=== PATIENT | female | born 1975 | race Hispanic/Latino ===

== ENCOUNTER 2018-01-08 08:10 | Emergency (ER) | payer MEDICAID, OTHER ==
[2018-01-08 09:01] LABS: BILIRUBIN,URINE Negative (NEGATIVE); COLOR,URINE Yellow (YELLOW); GLUCOSE, URINE (UA) Negative (NEGATIVE); KETONES,URINE Negative (NEGATIVE); LEUKOCYTE ESTERASE ,URINE Trace (NEGATIVE); NITRATE,URINE Negative (NEGATIVE); OCCULT BLOOD,URINE Small (NEGATIVE); PROTEIN,URINE Negative (NEGATIVE); UROBILINOGEN,URINE 0.2 mg/dL (0.2-1.0)
[2018-01-08 09:06] LABS: APPEARANCE,URINE SLIGHTLY CLOUDY (CLEAR)
[2018-01-08 09:42] LABS: BACTERIA,URINE Few /HPF (None Seen); RBC,URINE 0-1 /HPF (0-1); WBC,URINE 0-1 /HPF (0-1)
== END 2018-01-08 09:45 | disposition home or self-care (01) ==
LOC: EDH 08:10
DX: M54.5 Low back pain (principal); Z88.0 Allergy status to penicillin
CPT/HCPCS: 81001; 81025

== ENCOUNTER 2018-08-31 19:08 | Emergency (ER) | payer OTHER | END 2018-08-31 19:44 | disposition home or self-care (01) | LOC: EDH 19:08 | DX: O26.891 Other specified pregnancy related conditions, first trimester (principal); Z88.0 Allergy status to penicillin; Z79.899 Other long term (current) drug therapy; Z3A.01 Less than 8 weeks gestation of pregnancy | CPT/HCPCS: 99281 ==

== ENCOUNTER 2019-01-30 18:55 | Observation (INO) | payer MEDICAID, OTHER ==
[~2019-01-30] VITALS: Ht 152.4 cm; Wt 80.7 kg
[2019-01-30] MEDS ORDERED: LACTATED RINGERS 1000ML 1,000 ML IV PRN (19:16)
[2019-01-30 19:46] LABS: APPEARANCE,URINE CLEAR (CLEAR); BILIRUBIN,URINE NEGATIVE (NEGATIVE); COLOR,URINE YELLOW (YELLOW); GLUCOSE, URINE (UA) NEGATIVE (NEGATIVE); KETONES,URINE NEGATIVE (NEGATIVE); LEUKOCYTE ESTERASE ,URINE NEGATIVE (NEGATIVE); NITRATE,URINE NEGATIVE (NEGATIVE); OCCULT BLOOD,URINE SMALL (NEGATIVE); PROTEIN,URINE TRACE mg/dL (NEGATIVE)
[2019-01-30 19:55] LABS: AMPHET/METH SCREEN,URINE NEGATIVE (NEGATIVE); BARBITURATE SCREEN, URINE NEGATIVE (NEGATIVE); BENZODIAZEPINES SCREEN,URINE NEGATIVE (NEGATIVE); CANNABINOID SCREEN,URINE NEGATIVE (NEGATIVE); COCAINE SCREEN,URINE NEGATIVE (NEGATIVE); OPIATE SCREEN,URINE NEGATIVE (NEGATIVE); PHENCYCLIDINE SCREEN,URINE NEGATIVE (NEGATIVE)
[2019-01-30 20:10] LABS: BACTERIA,URINE Few /HPF (None Seen); MUCUS,URINE Few LPF (None Seen); SQUAMOUS EPITHELIAL CELL,UR Moderate /HPF (0-2)
== END 2019-01-30 21:55 | disposition home or self-care (01) ==
LOC: EDH 18:55 → LDH 19:31
PROVIDERS: ADMIT Obstetrics & Gynecology; ATTEND Obstetrics & Gynecology
DX: O42.912 Preterm premature rupture of membranes, unspecified as to length of time between rupture and onset of labor, second trimester (principal); Z3A.27 27 weeks gestation of pregnancy; Z79.899 Other long term (current) drug therapy
CPT/HCPCS: 76805; 80305; 81001; 99284; G0378 ×2; 96360

== ENCOUNTER 2019-02-09 18:06 | Observation (INO) | payer MEDICAID ==
[2019-02-09 18:54] LABS: APPEARANCE,URINE Clear (CLEAR); BILIRUBIN,URINE Negative (NEGATIVE); COLOR,URINE Dark Yellow (YELLOW); GLUCOSE, URINE (UA) Negative (NEGATIVE); KETONES,URINE Negative (NEGATIVE); LEUKOCYTE ESTERASE ,URINE Trace (NEGATIVE); NITRATE,URINE Negative (NEGATIVE); OCCULT BLOOD,URINE Negative (NEGATIVE); PH,URINE 6.5 (5.0-8.0); PROTEIN,URINE Trace mg/dL (NEGATIVE)
[2019-02-09 19:21] LABS: RBC,URINE 0-1 /HPF (0-1)
[2019-02-09 19:22] LABS: BACTERIA,URINE Few /HPF (None Seen); MUCUS,URINE Rare LPF (None Seen); SQUAMOUS EPITHELIAL CELL,UR Moderate /HPF (0-2)
[2019-02-09 19:54] LABS: AMPHET/METH SCREEN,URINE NEGATIVE (NEGATIVE); BARBITURATE SCREEN, URINE NEGATIVE (NEGATIVE); BENZODIAZEPINES SCREEN,URINE NEGATIVE (NEGATIVE); CANNABINOID SCREEN,URINE NEGATIVE (NEGATIVE); COCAINE SCREEN,URINE NEGATIVE (NEGATIVE); OPIATE SCREEN,URINE NEGATIVE (NEGATIVE); PHENCYCLIDINE SCREEN,URINE NEGATIVE (NEGATIVE)
== END 2019-02-09 20:05 | disposition home or self-care (01) ==
LOC: EDH 18:06 → LDH 18:23
PROVIDERS: ADMIT Obstetrics & Gynecology; ATTEND Obstetrics & Gynecology
DX: O26.893 Other specified pregnancy related conditions, third trimester (principal); R10.2 Pelvic and perineal pain; O09.523 Supervision of elderly multigravida, third trimester; Z3A.29 29 weeks gestation of pregnancy; Z79.899 Other long term (current) drug therapy
CPT/HCPCS: 80305; 81001; 99284; G0378 ×2

== ENCOUNTER 2019-02-11 17:02 | Observation (INO) | payer MEDICAID ==
[~2019-02-11] VITALS: Ht 149.9 cm; Wt 81.2 kg
[2019-02-11 17:22] LABS: APPEARANCE,URINE CLOUDY (CLEAR); BILIRUBIN,URINE NEGATIVE (NEGATIVE); COLOR,URINE YELLOW (YELLOW); GLUCOSE, URINE (UA) NEGATIVE (NEGATIVE); KETONES,URINE NEGATIVE (NEGATIVE); LEUKOCYTE ESTERASE ,URINE SMALL (NEGATIVE); NITRATE,URINE NEGATIVE (NEGATIVE); OCCULT BLOOD,URINE NEGATIVE (NEGATIVE); PROTEIN,URINE TRACE mg/dL (NEGATIVE)
[2019-02-11 17:29] LABS: AMORPHOUS SEDIMENT,UR Few /LPF (None Seen); BACTERIA,URINE Few /HPF (None Seen); RBC,URINE 0-1 /HPF (0-1); SQUAMOUS EPITHELIAL CELL,UR Moderate /HPF (0-2)
[2019-02-11 17:30] LABS: MUCUS,URINE Few LPF (None Seen)
[2019-02-11 18:19] VITALS: BP 125/77
[2019-02-11] MEDS ORDERED: LACTATED RINGERS 1000ML 1,000 ML IV ONE (18:30)
[2019-02-11] MEDS ORDERED: LACTATED RINGERS 1000ML 1,000 ML IV SCH (18:45)
== END 2019-02-11 19:45 | disposition home or self-care (01) ==
LOC: EDH 17:02 → LDH 17:47
PROVIDERS: ADMIT Obstetrics & Gynecology; ATTEND Obstetrics & Gynecology
DX: O26.893 Other specified pregnancy related conditions, third trimester (principal); N89.8 Other specified noninflammatory disorders of vagina; Z3A.29 29 weeks gestation of pregnancy
CPT/HCPCS: 81001; 99284; G0378 ×2; J7120; 96360

== ENCOUNTER 2019-02-20 02:42 | Observation (INO) | payer MEDICAID ==
[~2019-02-20] VITALS: Ht 149.9 cm; Wt 81.6 kg
[2019-02-20] MEDS ORDERED: LACTATED RINGERS 1000ML 1,000 ML IV SCH (02:55)
[2019-02-20 03:08] LABS: APPEARANCE,URINE Cloudy (CLEAR); BILIRUBIN,URINE Negative (NEGATIVE); COLOR,URINE Yellow (YELLOW); GLUCOSE, URINE (UA) Negative (NEGATIVE); KETONES,URINE Negative (NEGATIVE); LEUKOCYTE ESTERASE ,URINE Trace (NEGATIVE); NITRATE,URINE Negative (NEGATIVE); OCCULT BLOOD,URINE Negative (NEGATIVE); PROTEIN,URINE Trace mg/dL (NEGATIVE)
[2019-02-20 03:16] LABS: AMPHET/METH SCREEN,URINE NEGATIVE (NEGATIVE); BARBITURATE SCREEN, URINE NEGATIVE (NEGATIVE); BENZODIAZEPINES SCREEN,URINE NEGATIVE (NEGATIVE); CANNABINOID SCREEN,URINE NEGATIVE (NEGATIVE); COCAINE SCREEN,URINE NEGATIVE (NEGATIVE); OPIATE SCREEN,URINE NEGATIVE (NEGATIVE); PHENCYCLIDINE SCREEN,URINE NEGATIVE (NEGATIVE)
[2019-02-20 03:22] LABS: BACTERIA,URINE None Seen /HPF (None Seen); MUCUS,URINE Moderate LPF (None Seen); RBC,URINE 0-1 /HPF (0-1); SQUAMOUS EPITHELIAL CELL,UR Few /HPF (0-2); WBC,URINE 0-1 /HPF (0-1)
== END 2019-02-20 05:00 | disposition home or self-care (01) ==
LOC: EDH 02:42 → LDH 02:43
PROVIDERS: ADMIT Obstetrics & Gynecology; ATTEND Obstetrics & Gynecology
DX: O62.9 Abnormality of forces of labor, unspecified (principal); Z3A.31 31 weeks gestation of pregnancy; Z88.0 Allergy status to penicillin
CPT/HCPCS: 59025; 76815; 80305; 81001; 99284; G0378 ×2; J7120; 96360

== ENCOUNTER 2019-11-10 06:36 | Emergency (ER) | payer MEDICAID, OTHER ==
[2019-11-10 07:16] LABS: APPEARANCE,URINE CLEAR (CLEAR); BILIRUBIN,URINE NEGATIVE (NEGATIVE); COLOR,URINE YELLOW (YELLOW); GLUCOSE, URINE (UA) NEGATIVE (NEGATIVE); KETONES,URINE NEGATIVE (NEGATIVE); LEUKOCYTE ESTERASE ,URINE NEGATIVE (NEGATIVE); NITRATE,URINE NEGATIVE (NEGATIVE); OCCULT BLOOD,URINE MODERATE (NEGATIVE); PH,URINE 5.5 (5.0-8.0); PROTEIN,URINE NEGATIVE (NEGATIVE); UROBILINOGEN,URINE 0.2 mg/dL (0.2-1.0)
[2019-11-10 07:18] LABS: HCG,QUAL RESULT NEGATIVE (NEGATIVE)
[2019-11-10 07:29] LABS: SQUAMOUS EPITHELIAL CELL,UR Few /HPF (0-2)
[2019-11-10 07:30] LABS: BACTERIA,URINE Rare /HPF (None Seen); WBC,URINE None Seen /HPF (0-1)
[2019-11-10 07:32] LABS: BASOPHILS % (AUTO) 0.2 % (0.0-5.0); EOSINOPHILS % (AUTO) 8.1 % (0.0-8.0); HEMATOCRIT 42.3 % (36-48); LYMPHOCYTES % (AUTO) 22.2 % (21.0-51.0); MEAN CORPUSCULAR HEMOGLOBIN 29.4 pg (27.0-33.0); MEAN CORPUSCULAR HGB CONC 33.3 g/dL (32.0-36.0); MEAN CORPUSCULAR VOLUME 88.3 fL (79-99); MONOCYTES % (AUTO) 7.2 % (3.0-13.0); NEUTROPHILS % (AUTO) 62.1 % (40.0-77.0); PLATELET COUNT (AUTO) 292 K/uL (130-400); RED BLOOD CELL COUNT(AUTO) 4.79 MIL/uL (4.00-5.50); RED CELL DISTRIBUTION WIDTH 12.1 % (11.0-15.5); WHITE BLOOD COUNT (AUTO) 8.9 K/uL (4.8-10.8)
[2019-11-10 07:42] LABS: CREATININE 0.8 mg/dL (0.5-1.5); POTASSIUM 4.3 mmol/L (3.5-5.1)
[2019-11-10] MEDS ORDERED: ACETAMINOPHEN EXTRA STRENGTH 500 MG TABLET ONE (08:26)
== END 2019-11-10 08:31 | disposition home or self-care (01) ==
LOC: EDH 06:36
DX: B37.3 Candidiasis of vulva and vagina (principal); Z88.0 Allergy status to penicillin; Z98.51 Tubal ligation status
CPT/HCPCS: 36415; 80048; 81001; 81025; 85025

== ENCOUNTER 2020-11-27 00:29 | Emergency (ER) | payer SELFPAY ==
[2020-11-27 00:58] LABS: BASOPHILS % (AUTO) 0.5 % (0.0-5.0); EOSINOPHILS % (AUTO) 4.1 % (0.0-8.0); HEMATOCRIT 39.8 % (36-48); LYMPHOCYTES % (AUTO) 28.8 % (21.0-51.0); MEAN CORPUSCULAR HEMOGLOBIN 30.7 pg (27.0-33.0); MEAN CORPUSCULAR HGB CONC 34.9 g/dL (32.0-36.0); MEAN CORPUSCULAR VOLUME 87.9 fL (79-99); NEUTROPHILS % (AUTO) 58.4 % (40.0-77.0); PLATELET COUNT (AUTO) 269 K/uL (130-400); RED BLOOD CELL COUNT(AUTO) 4.53 MIL/uL (4.00-5.50); RED CELL DISTRIBUTION WIDTH 12.3 % (11.0-15.5); WHITE BLOOD COUNT (AUTO) 8.6 K/uL (4.8-10.8)
[2020-11-27 01:06] LABS: CREATININE 0.9 mg/dL (0.5-1.5); POTASSIUM 3.6 mmol/L (3.5-5.1)
[2020-11-27 01:11] LABS: ALBUMIN 3.6 g/dL (3.5-5.0); BILIRUBIN,TOTAL 0.2 mg/dL (0.2-1.0); TOTAL PROTEIN, SERUM 7.4 g/dL (6.0-8.3)
[2020-11-27] MEDS ORDERED: PREDNISONE 20 MG TABLET ONE (01:37)
== END 2020-11-27 03:44 | disposition home or self-care (01) ==
LOC: EDH 00:29
DX: R07.89 Other chest pain (principal); Z90.49 Acquired absence of other specified parts of digestive tract; Z88.0 Allergy status to penicillin
CPT/HCPCS: 36415; 71045; 80053; 84484; 85025; 93005

== ENCOUNTER 2020-11-27 23:46 | Emergency (ER) | payer SELFPAY ==
[2020-11-28] MEDS ORDERED: IOHEXOL-350 50ML VIAL IV ONE (00:45)
[2020-11-28] MEDS ORDERED: KETOROLAC TROMETHAMINE 60 MG/2 ML VIAL ONE (01:01)
== END 2020-11-28 02:49 | disposition home or self-care (01) ==
LOC: EDH 23:46
DX: S29.011A Strain of muscle and tendon of front wall of thorax, initial encounter (principal); Z90.49 Acquired absence of other specified parts of digestive tract; X58.XXXA Exposure to other specified factors, initial encounter; Y93.89 Activity, other specified; Y92.89 Other specified places as the place of occurrence of the external cause; Y99.8 Other external cause status
CPT/HCPCS: 71260; 96372; 99285; J1885; Q9967

== ENCOUNTER 2023-02-09 13:53 | Emergency (ER) | payer OTHER ==
[~2023-02-09] VITALS: Ht 152.4 cm; Wt 74.8 kg
[2023-02-09] MEDS ORDERED: IBUP-2070 PO (16:34)
[2023-02-09 16:37] VITALS: BP 139/72
[2023-02-09] MEDS ORDERED: KETOROLAC 30MG VIAL (30MG/ML) IM ONE (17:00)
== END 2023-02-09 17:10 | disposition home or self-care (01) ==
LOC: EDH 13:53
DX: S63.681A Other sprain of right thumb, initial encounter (principal); Z90.89 Acquired absence of other organs; Z88.8 Allergy status to other drugs, medicaments and biological substances; X58.XXXA Exposure to other specified factors, initial encounter; Y93.89 Activity, other specified; Y92.89 Other specified places as the place of occurrence of the external cause; Y99.8 Other external cause status
CPT/HCPCS: 99283; 73140; 29125; 96372; J1885

== ENCOUNTER 2023-08-09 19:50 | Emergency (ER) | payer OTHER ==
[~2023-08-09] VITALS: Ht 160 cm; Wt 72.6 kg
[~2023-08-09 19:50] MED LIST: IBUP-2070 PO
[2023-08-09 20:53] LABS: BASOPHILS # (AUTO) 0.04 K/uL (0.00-0.20); BASOPHILS % (AUTO) 0.4 % (0.0-5.0); EOSINOPHILS # (AUTO) 0.42 K/uL (0.00-0.70); EOSINOPHILS % (AUTO) 4.2 % (0.0-8.0); HEMATOCRIT 38.4 % (36-48); IMMATURE GRANULOCYTE ABSOLUTE 0.03 K/uL (0-1); LYMPHOCYTES # (AUTO) 2.6 K/uL (1.0-4.8); LYMPHOCYTES % (AUTO) 26.3 % (21.0-51.0); MEAN CORPUSCULAR HEMOGLOBIN 30.4 pg (27.0-33.0); MEAN CORPUSCULAR HGB CONC 34.4 g/dL (32.0-36.0); MEAN CORPUSCULAR VOLUME 88.5 fL (79-99); MONOCYTES # (AUTO) 0.7 K/uL (0.1-1.0); MONOCYTES % (AUTO) 7.3 % (3.0-13.0); NEUTROPHILS # (AUTO) 6.2 K/uL (1.8-7.7); NEUTROPHILS % (AUTO) 61.5 % (40.0-77.0); PLATELET COUNT (AUTO) 303 K/uL (130-400); RED BLOOD CELL COUNT(AUTO) 4.34 MIL/uL (4.00-5.50); RED CELL DISTRIBUTION WIDTH 12.5 % (11.0-15.5)
[2023-08-09] MEDS ORDERED: LACTATED RINGERS 1000ML 1,000 ML IV ONE (21:00)
[2023-08-09] MEDS ORDERED: ONDANSETRON 4MG INJ IVP ONE (21:00)
[2023-08-09] MEDS ORDERED: NITROGLYCERIN 0.4 MG SL TAB SL PRN (21:00)
[2023-08-09 21:03] LABS: CREATININE 0.7 mg/dL (0.5-1.5); POTASSIUM 4.9 mmol/L (3.5-5.1)
[2023-08-09 21:14] LABS: ALBUMIN 3.2 g/dL (3.5-5.0); BILIRUBIN,TOTAL 0.4 mg/dL (0.2-1.0); TOTAL PROTEIN, SERUM 7.8 g/dL (6.0-8.3)
[2023-08-09] MEDS ORDERED: ASPIRIN 325MG TAB PO ONE (23:30)
[2023-08-09 23:44] VITALS: BP 116/80; PULSE 83; RESP 16; O2SAT 99
== END 2023-08-10 00:27 | disposition home or self-care (01) ==
LOC: EDH 19:50
DX: R07.89 Other chest pain (principal); R11.2 Nausea with vomiting, unspecified; Z90.89 Acquired absence of other organs; Z88.0 Allergy status to penicillin
CPT/HCPCS: 99285; 96374; 71045; 96361; 84484 ×2; 80053; 84703; 83690; 85025; 36415; 93005 ×3; J7120; J2405

== ENCOUNTER 2025-01-08 17:03 | Emergency (ER) | payer SELFPAY ==
[~2025-01-08] VITALS: Ht 160 cm; Wt 73.9 kg
[2025-01-08 17:40] LABS: BASOPHILS # (AUTO) 0.07 K/uL (0.00-0.20); BASOPHILS % (AUTO) 0.7 % (0.0-5.0); EOSINOPHILS # (AUTO) 0.76 K/uL (0.00-0.70); EOSINOPHILS % (AUTO) 7.5 % (0.0-8.0); IMMATURE GRANULOCYTE ABSOLUTE 0.03 K/uL (0-1); LYMPHOCYTES # (AUTO) 2.7 K/uL (1.0-4.8); MEAN CORPUSCULAR HEMOGLOBIN 30.1 pg (27.0-33.0); MEAN CORPUSCULAR HGB CONC 33.6 g/dL (32.0-36.0); MEAN CORPUSCULAR VOLUME 89.7 fL (79-99); MONOCYTES # (AUTO) 0.9 K/uL (0.1-1.0); MONOCYTES % (AUTO) 8.5 % (3.0-13.0); NEUTROPHILS # (AUTO) 5.7 K/uL (1.8-7.7); PLATELET COUNT (AUTO) 339 K/uL (130-400); RED BLOOD CELL COUNT(AUTO) 4.68 MIL/uL (4.00-5.50); RED CELL DISTRIBUTION WIDTH 12.7 % (11.0-15.5); WHITE BLOOD COUNT (AUTO) 10.1 K/uL (4.8-10.8)
[2025-01-08 17:50] LABS: CREATININE 0.9 mg/dL (0.5-1.0)
--- NOTE | 2025-01-08 18:08 | HMCIMG ---
ULTRASOUND SOFT TISSUE INDICATION: Lateral right neck lump COMPARISON: None TECHNIQUE: Multiplanar sonographic images of the lateral right neck were obtained earlier in real-time using grayscale and color Doppler technique, and subsequently made available for review. FINDINGS/IMPRESSION: 9 x 7 x 9 mm abnormal reactive lymph node demonstrated along the lateral right neck with associated vascularity and loss of normal reniform shape and fatty hilum.
[2025-01-08 18:30] VITALS: BP 137/86; PULSE 83; RESP 16; TEMP 97.8; O2SAT 97
[2025-01-08] MEDS ORDERED: CLIN-141 PO (18:55)
--- NOTE | 2025-01-08 18:55 | ERN ---
General Chief Complaint: Neck Pain Stated Complaint: LUMP ON NECK Time Seen by MD: 17:05 Time Seen by Midlevel: 17:05 Source: patient History of Present Illness Initial Comments 49-year-old female presents to the emergency department due to right-sided neck pain onset last night. Patient reports she noticed a lump to the right side. Denies any cough, congestion, headache, decreased neck motion or further associated symptoms. Denies significant past medical history. Allergies: Coded Allergies: Penicillins (Unverified Allergy, Mild, RASH, 02/10/17) Home Meds Active Scripts Clindamycin HCl (Clindamycin HCl) 300 Mg Capsule, 1 CAP PO TID for 7 Days, #21 CAP 0 Refills Prov:SACHIN VENEGAS 01/08/25 Ibuprofen (Ibuprofen) 600 Mg Tablet, 600 MG PO Q6H PRN for PAIN, #30 TAB Prov:PETER GRANDE 02/09/23 Past Medical History Past Medical History: No Pertinent History Past Surgical History: Tonsillectomy ROS Dictation Constitutional: Negative for fever,chills, and weight loss Eyes: Negative for injury, pain,redness, and discharge ENT: Negative for injury,pain or swelling Cardiovascular: Negative for chest pain, palpitations, and edema Respiratory: Negative for shortness of breath, cough, and wheezing, Abdomen/GI: Negative for abdominal pain, nausea, vomiting, diarrhea, and constipation Back: Negative for injury and pain : Negative for painful urination, bleeding or discharge MS/Extremity: Positive for right-sided neck pain and bump. Negative for injury and deformity Skin: Negative for rash, and discoloration Neuro: Negative for headache, weakness, numbness, tingling, and seizure Psych: Negative for suicide ideation, homicidal ideation, and hallucinations Physical Exam Physical Exam Dictation General: awake, alert, no acute distress Head/Face: Normocephalic, atraumatic Eyes: PERRL, EOMI, normal conjunctiva ENT: oral cavity clear, oral mucosa moist, mild erythematous tonsils bilaterally Neck: Supple, normal range of motion, right-sided posterior lymph node swelling mild tenderness mobile, anterior cervical lymph node tenderness Cardiovascular: RRR, normal S1/S2 Respiratory: CTAB, no respiratory distress, no rales or wheezes Skin: Warm, dry, normal turgor, no rash MS/Extremity: Pulses equal, no cyanosis, neurovascular intact, FROM Neuro: COAx4, GCS 15, strength 5/5, CN 2-12 intact, normal cerebellar exam, normal gait Psych: Normal behavior, mood, and affect normal Results Laboratory and Microbiology Lab and Micro Result Laboratory Tests Test 01/08/25 17:32 01/08/25 17:58 White Blood Count 10.1 K/uL (4.8-10.8) Red Blood Count 4.68 MIL/uL (4.00-5.50) Hemoglobin 14.1 g/dL (12.0-16.0) Hematocrit 42.0 % (36-48) Mean Corpuscular Volume 89.7 fL (79-99) Mean Corpuscular Hemoglobin 30.1 pg (27.0-33.0) Mean Corpuscular Hemoglobin Concent 33.6 g/dL (32.0-36.0) Red Cell Distribution Width 12.7 % (11.0-15.5) Platelet Count 339 K/uL (130-400) Mean Platelet Volume 9.6 fL (7.5-10.5) Immature Granulocyte % (Auto) 0.3 % (0-1) Neutrophils (%) (Auto) 56.0 % (40.0-77.0) Lymphocytes (%) (Auto) 27.0 % (21.0-51.0) Monocytes (%) (Auto) 8.5 % (3.0-13.0) Eosinophils (%) (Auto) 7.5 % (0.0-8.0) Basophils (%) (Auto) 0.7 % (0.0-5.0) Neutrophils # (Auto) 5.7 K/uL (1.8-7.7) Lymphocytes # (Auto) 2.7 K/uL (1.0-4.8) Monocytes # (Auto) 0.9 K/uL (0.1-1.0) Eosinophils # (Auto) 0.76 K/uL (0.00-0.70) H Basophils # (Auto) 0.07 K/uL (0.00-0.20) Absolute Immature Granulocyte (auto 0.03 K/uL (0-1) Nucleated Red Blood Cells 0.0 % (0.0-0.19) Sodium Level 139 mmol/L (136-145) Potassium Level 4.0 mmol/L (3.5-5.1) Chloride Level 104 mmol/L (101-111) Carbon Dioxide Level 30 mmol/L (21-32) Blood Urea Nitrogen 12 mg/dL (7-18) Creatinine 0.9 mg/dL (0.5-1.0) Glomerular Filtration Rate Calc 79 mL/min (>90) Random Glucose 112 mg/dL (70-105) H Total Calcium 10.2 mg/dL (8.5-10.1) H Monoscreen NEGATIVE (NEGATIVE) Group A Streptococcus Rapid positive (NEGATIVE) *A Labs Reviewed?: Yes EKG/XRAY/US/CT/MRI Ultrasound Comment REASON: Right side lump ORDERING PHYSICIAN: SACHIN VENEGAS PROCEDURE: SOFT NECK - US SOFT TISSUE NECK ULTRASOUND SOFT TISSUE INDICATION: Lateral right neck lump COMPARISON: None TECHNIQUE: Multiplanar sonographic images of the lateral right neck were obtained earlier in real-time using grayscale and color Doppler technique, and subsequently made available for review. FINDINGS/IMPRESSION: 9 x 7 x 9 mm abnormal reactive lymph node demonstrated along the lateral right neck with associated vascularity and loss of normal reniform shape and fatty hilum. DICTATED BY: JEFF CUNNINGHAM MD DATE: 01/08/251804 MDM MDM: Differential diagnosis: Viral illness, mono, strep, abscess Rationale: 49-year-old female presents to the emergency department due to right- sided neck pain onset last night. Patient reports she noticed a lump to the right side. Denies any cough, congestion, headache, decreased neck motion or further associated symptoms. Denies significant past medical history. On initial vitals patient had a low-grade temp of 99.5�. Labs obtained CBC and chemistry within normal limits. Serologies negative for mono, strep positive. Ultrasound reports right-sided 9x7x9 mm reactive lymph node. Patient was administered acetaminophen and dexamethasone in the ED. Antibiotics prescribed for outpatient treatment. She was educated on findings and diagnosis. Advised to follow up with PCP. Return to the emergency department if any worsening symptoms. Patient verbalized understanding. Patient stable for discharge. There are no social concerns with this patient. I independently interpreted the test that were performed, results were reviewed by me and considered findings on radiology if ordered. Medical management and examination interpretation discussions were had by me rankin h other qualified healthcare professionals as indicated for the patient's care. ED Course Orders Procedure Category Date Status Time Cbc With Differential LAB 01/08/25 Complete 17:21 Basic Metabolic Panel LAB 01/08/25 Complete 17:21 Us Soft Tissue Neck US 01/08/25 Resulted 17:21 Rapid (Group A Strep) LAB 01/08/25 Complete 17:21 Monotest LAB 01/08/25 Complete 17:21 Acetaminophen 500mg PHA 01/08/25 Complete Tab (Tylenol 500mg T 18:30 Dexamethasone 4mg/Ml PHA 01/08/25 Complete 1ml Vial (Dexametha 19:00 Current Medications Medications (Trade) Dose Ordered Sig/Qian Route PRN Reason Start Time Stop Time Status Last Admin Dose Admin Acetaminophen (TYLenol 500MG TAB) 1,000 mg ONCE ONCE PO 01/08/25 18:30 01/08/25 18:31 DC 01/08/25 18:57 Dexamethasone Sodium Phosphate (dexaMETHasone 4MG/ML 1ML VIAL) 4 mg ONCE ONCE IM 01/08/25 19:00 01/08/25 19:01 DC 01/08/25 18:58 Vital Signs Date Time Temp Pulse Resp B/P (MAP) Pulse Ox O2 Delivery O2 Flow Rate FiO2 01/08/25 17:05 98.4 97 16 155/94 96 Room Air DX & DISP Disposition: Discharge Departure Impression: Primary Impression: Strep pharyngitis Additional Impression: Lymphadenopathy of right cervical region Condition: Stable Scripts Clindamycin HCl (Clindamycin HCl) 300 Mg Capsule 1 CAP PO TID for 7 Days, #21 CAP 0 Refills Prov: SACHIN VENEGAS 01/08/25 Additional Instructions: Discharge home. Rest. Follow up with primary care in 24 hours. Return to the ER for any acute changes or worsening symptoms. If any medications were prescribed take as directed. Okay to continue home medications unless otherwise discussed during your visit in the emergency room today. Patient was also advised to follow-up with primary care physician in 1 to 2 days for continued monitoring. Referrals: SELF,REFERRAL (PCP) I performed the substantive portion of the visit. I have reviewed and personally made and approve the management plan that is documented in the notes by myself or the PENNY. I acknowledge full responsibility for the patient's management plan. SACHIN VENEGAS January 08, 2025 18:55
[2025-01-08] MEDS: acetaMINOPHEN 500 MG TABLET PO ONE (18:57)
[2025-01-08] MEDS: dexaMETHasone SOD PHOSPHATE 4 MG/ML 1ML VIAL IM ONE (18:58)
== END 2025-01-08 19:12 | disposition home or self-care (01) ==
LOC: EDH 17:03
DX: J02.0 Streptococcal pharyngitis (principal); R59.0 Localized enlarged lymph nodes; Z88.0 Allergy status to penicillin; Z90.89 Acquired absence of other organs; Z79.899 Other long term (current) drug therapy
CPT/HCPCS: 99285; 80048; 85025; 87880; 86308; 36415; 76536; 96372; J1100

== ENCOUNTER 2025-01-25 16:03 | Emergency (ER) | payer SELFPAY ==
[~2025-01-25] VITALS: Ht 160 cm; Wt 75.7 kg
[~2025-01-25 16:03] MED LIST changes: +CLIN-141 PO
--- NOTE | 2025-01-25 18:10 | ERN ---
General Chief Complaint: Wrist Pain/Injury Stated Complaint: SOCCER BALL RT HIT ARM UNABLE TO MOVE IT Time Seen by MD: 17:14 History of Present Illness Initial Comments Patient was playing soccer with her son when she reached to block a ball that was coming at her and her son kicked ball and her right forearm she says that since then she has not been able to move it and she has quite a lot of pain. Allergies: Coded Allergies: Penicillins (Unverified Allergy, Mild, RASH, 02/10/17) Home Meds Active Scripts Clindamycin HCl (Clindamycin HCl) 300 Mg Capsule, 1 CAP PO TID for 7 Days, #21 CAP 0 Refills Prov:SACHIN VENEGAS 01/08/25 Ibuprofen (Ibuprofen) 600 Mg Tablet, 600 MG PO Q6H PRN for PAIN, #30 TAB Prov:PETER GRANDE 02/09/23 Past Medical History Past Medical History: No Pertinent History Past Surgical History: Tonsillectomy Female( History) : 7 Para: 4 Aborts: 3 ROS Dictation Review of systems otherwise negative Physical Exam Extremities Comment Right arm does show some mild swelling on the distal radius. She can supinate and pronate her right arm there are no distal neurovascular injuries. There are no discolorations or bruising. Palpation up and down the patient's proximal forearm humerus and shoulder elicit no pain. MDM Plain films of the patient's right wrist and forearm has been ordered. Films are negative for fractures or dislocations. I explained to the patient that she just needs to treat her wrist with ice elevation and then Tylenol or Motrin for pain. If the pain does not improve in the next two or three days please come back to the emergency room. ED Course Orders Procedure Category Date Status Time Wrist Comp 3+Vws Rt RAD 01/25/25 Resulted 17:14 Forearm 2vws Rt RAD 01/25/25 Resulted 17:14 Vital Signs Date Time Temp Pulse Resp B/P (MAP) Pulse Ox O2 Delivery O2 Flow Rate FiO2 01/25/25 16:14 99.3 96 16 135/97 98 Room Air* 0 21 01/25/25 16:14 99.3 96 16 135/97 96 Room Air 0 DX & DISP Disposition: Discharge Departure Impression: Primary Impression: Right wrist sprain Condition: Stable Additional Instructions: Elevate the right arm ice it to decrease the swelling pain control please take Motrin or ibuprofen. If the pain and movement does not improve in the next 3-4 days please come back to the emergency room. You have no fractures. Referrals: SELF,REFERRAL (PCP) ROMINA HENSON MD January 25, 2025 18:10
--- NOTE | 2025-01-25 18:31 | HMCIMG ---
RIGHT WRIST RADIOGRAPHS-3 VIEWS INDICATION: Pain COMPARISON: None FINDINGS: AP, lateral, and oblique views. No evidence for acute fracture or subluxation. Scaphoid bone is intact. Ulnar variance is within normal limits. Carpal alignment is well maintained. No radiopaque foreign body noted. IMPRESSION: No evidence for fracture or dislocation.
--- NOTE | 2025-01-25 18:32 | HMCIMG ---
RIGHT FOREARM RADIOGRAPHS - 2 VIEWS INDICATION: Pain COMPARISON: None FINDINGS: AP and lateral views. No acute fracture or subluxation identified. Miniscule spurring of the anterior ulnar coronoid ridge on the lateral view and additional spurring near the posterior ulnotrochlear joint on the same image. IMPRESSION: No evidence for fracture or dislocation.
[2025-01-25 18:56] VITALS: BP 128/84; PULSE 92; RESP 16; TEMP 98.7; O2SAT 96
== END 2025-01-25 18:57 | disposition home or self-care (01) ==
LOC: EDH 16:03
DX: S63.501A Unspecified sprain of right wrist, initial encounter (principal); Z88.0 Allergy status to penicillin; Z90.89 Acquired absence of other organs; W21.09XA Struck by other hit or thrown ball, initial encounter; Y93.66 Activity, soccer; Y92.89 Other specified places as the place of occurrence of the external cause; Y99.8 Other external cause status
CPT/HCPCS: 73090; 73110; 99284